=== PATIENT | male | born 1930 | race Caucasian/White ===

== ENCOUNTER 2017-03-17 12:19 | Emergency (ER) | payer MEDICARE, OTHER ==
[~2017-03-17] VITALS: Ht 177.8 cm; Wt 78.9 kg
[~2017-03-17 12:19] MED LIST: AMLO5 PO; ASPI81EC PO; ATOR20 PO; CLOP75 PO; EPIN.3I IM; EPIPEN0.3 MG/0.3 IM; FAMO40 PO; LANS15EC PO; LISHYD2025 PO; Lisinopril2.5 MG PO; METO25ER PO; MULVITMIND PO; Norco 5-325 Ta1 EACH PO; POTA10T PO; POTA8 PO; PRED20 PO; Pepcid20 MG PO; Prednisone20 MG PO; Prinivil10 MG PO; ST. JOSEPH ASPI81 MG PO; TAMS.4ER PO; [UNRECOGNIZED DRUG - OTHER] PO
[2017-03-17] MEDS ORDERED: HYDURE500 PO (12:53)
[2017-03-17] MEDS ORDERED: METO50ER PO (12:53)
[2017-03-17] MEDS ORDERED: ZESTORETIC 20-121 EA (12:53)
== END 2017-03-17 14:51 | disposition home or self-care (01) ==
LOC: ER 12:19
DX: M79.662 Pain in left lower leg (principal); Z91.030 Bee allergy status; Z79.899 Other long term (current) drug therapy; Z79.82 Long term (current) use of aspirin; K21.9 Gastro-esophageal reflux disease without esophagitis; I10 Essential (primary) hypertension; I25.10 Atherosclerotic heart disease of native coronary artery without angina pectoris; E78.5 Hyperlipidemia, unspecified; Z87.891 Personal history of nicotine dependence
CPT/HCPCS: 93971; 99284

== ENCOUNTER 2017-04-29 14:09 | Day surgery (SDC) | payer MEDICARE, OTHER ==
[~2017-04-29 14:09] MED LIST changes: +HYDURE500 PO; +METO50ER PO; +ZESTORETIC 20-121 EA
== END 2017-04-29 23:04 | disposition home or self-care (01) ==
LOC: RAD 14:09
PROC: BQ28YZZ Computerized Tomography (CT Scan) of Left Knee using Other Contrast (ICD-10-PCS; principal; 2017-04-29)
DX: M17.12 Unilateral primary osteoarthritis, left knee (principal); M71.22 Synovial cyst of popliteal space [Baker], left knee
CPT/HCPCS: 20610; 73701; 77002; Q9967

== ENCOUNTER 2017-10-20 16:43 | Emergency (ER) | payer MEDICARE, OTHER ==
[~2017-10-20] VITALS: Ht 177.8 cm; Wt 81.7 kg
[2017-10-20] MEDS ORDERED: Prednisone50 MG PO (17:13)
[2017-10-20] MEDS ORDERED: EPIPEN 2-P0.3 MG/0.3 IM (17:13)
== END 2017-10-20 18:00 | disposition home or self-care (01) ==
LOC: ER 16:43
DX: T63.461A Toxic effect of venom of wasps, accidental (unintentional), initial encounter (principal); Z91.038 Other insect allergy status; Z79.899 Other long term (current) drug therapy; Z79.82 Long term (current) use of aspirin; Z79.52 Long term (current) use of systemic steroids; Z87.891 Personal history of nicotine dependence
CPT/HCPCS: 99282; J1100; Q0163

== ENCOUNTER 2017-11-11 10:26 | Day surgery (SDC) | payer MEDICARE, OTHER ==
[~2017-11-11] VITALS: Ht 180.3 cm; Wt 74.9 kg
[~2017-11-11 10:26] MED LIST changes: +EPIPEN 2-P0.3 MG/0.3 IM; +Prednisone50 MG PO
== END 2017-11-11 12:56 | disposition home or self-care (01) ==
LOC: ORSCSDS 10:26
PROVIDERS: Ophthalmology
PROC: 08RK3JZ Replacement of Left Lens with Synthetic Substitute, Percutaneous Approach (ICD-10-PCS; principal; 2017-11-11 12:00)
DX: H25.12 Age-related nuclear cataract, left eye (principal); H21.81 Floppy iris syndrome; I10 Essential (primary) hypertension; E78.2 Mixed hyperlipidemia; J44.9 Chronic obstructive pulmonary disease, unspecified; Z86.73 Personal history of transient ischemic attack (TIA), and cerebral infarction without residual deficits; I25.2 Old myocardial infarction; Z95.0 Presence of cardiac pacemaker; Z79.899 Other long term (current) drug therapy; Z79.82 Long term (current) use of aspirin
CPT/HCPCS: J2250; J3010; J7120; V2632

== ENCOUNTER 2017-12-02 13:20 | Day surgery (SDC) | payer MEDICARE, OTHER ==
[~2017-12-02] VITALS: Ht 180.3 cm; Wt 76.0 kg
== END 2017-12-02 16:43 | disposition home or self-care (01) ==
LOC: ORSCSDS 13:20
PROVIDERS: Ophthalmology
PROC: 08RJ3JZ Replacement of Right Lens with Synthetic Substitute, Percutaneous Approach (ICD-10-PCS; principal; 2017-12-02 15:00)
DX: H25.11 Age-related nuclear cataract, right eye (principal); H18.51 Endothelial corneal dystrophy; I10 Essential (primary) hypertension; I25.10 Atherosclerotic heart disease of native coronary artery without angina pectoris; I25.2 Old myocardial infarction; Z86.73 Personal history of transient ischemic attack (TIA), and cerebral infarction without residual deficits; Z95.0 Presence of cardiac pacemaker; Z79.899 Other long term (current) drug therapy
CPT/HCPCS: J3010; J7120; V2632

== ENCOUNTER 2018-06-17 19:32 | Inpatient (IN) | payer MEDICARE, OTHER ==
[~2018-06-17] VITALS: Ht 175.3 cm; Wt 78.4 kg
[~2018-06-17 19:32] MED LIST changes: -ZESTORETIC 20-121 EA; +ZESTORETIC 20-121 EA PO
[2018-06-17 20:13] LABS: BASOPHILS ABSOLUTE AUTO 0.32 K/mm3 (0.00-0.23); BASOPHILS PERCENT AUTO 2 % (0-2); EOSINOPHILS ABSOLUTE AUTO 0.75 K/mm3 (0.00-0.68); EOSINOPHILS PERCENT AUTO 5 % (0-6); Hematocrit 44.1 % (37.0-53.0); Hemoglobin 14.2 g/dL (13.5-17.5); IMMATURE GRAN ABSOLUTE AUTO 0.89 K/mm3 (0.00-0.10); IMMATURE GRAN PERCENT AUTO 5 % (0-1); LYMPHOCYTES ABSOLUTE AUTO 2.61 K/mm3 (0.84-5.20); LYMPHOCYTES PERCENT AUTO 16 % (21-46); MONOCYTES ABSOLUTE AUTO 1.37 K/mm3 (0.16-1.47); MONOCYTES PERCENT AUTO 8 % (4-13); Mean Corpuscular HGB 31.8 pg (26.0-34.0); Mean Corpuscular HGB Conc 32.2 g/dL (31.5-36.5); Mean Corpuscular Volume 99 fL (80-100); Mean Platelet Volume 9.8 fL (9.1-12.4); NEUTROPHILS ABSOLUTE AUTO 10.54 K/mm3 (1.96-9.15); NEUTROPHILS PERCENT AUTO 64 % (41-73); Platelet Count 507 K/mm3 (150-400); RDW Coefficient Variation 15.6 % (11.7-14.2); RDW Standard Deviation 56.4 fL (35.1-46.3); Red Blood Cell Count 4.46 M/mm3 (4.30-5.90); White Blood Cell Count 16.48 K/mm3 (4.00-11.30)
[2018-06-17 20:25] LABS: Alanine Aminotransfer (ALT/SGP 25 U/L (12-78); Albumin, Blood 3.5 g/dL (3.4-5.0); Albumin/Globulin Ratio 1.2 (0.8-1.8); Alk Phos 73 U/L (50-136); Anion Gap 6 mmol/L (6-16); Aspartate Aminotrans (AST/SGOT 21 U/L (12-37); Bilirubin, Total 0.4 mg/dL (0.1-1.0); Blood Urea Nitrogen 27 mg/dL (8-24); Bun/Creatinine Ratio 22.9 (12.0-20.0); CO2, Blood 25 mmol/L (21-32); Calcium, Blood 8.3 mg/dL (8.5-10.1); Chloride, Blood 112 mmol/L (98-108); Creatinine, Blood 1.18 mg/dL (0.60-1.20); Ethanol (Alcohol), Blood, Med <3 mg/dL; Glomerular Filtration Rate >60 (60-); Glucose, Blood 64 mg/dL (70-99); Potassium, Blood 3.9 mmol/L (3.5-5.5); Sodium, Blood 143 mmol/L (136-145); Total Protein, Blood 6.5 g/dL (6.4-8.2); Troponin I <0.015 ng/mL (0.000-0.040)
[2018-06-17 20:47] LABS: BASOPHILS ABSOLUTE MAN 0.65 K/mm3 (0.00-0.23); BASOPHILS PERCENT MAN 4 % (0-2); EOSINOPHILS ABSOLUTE MAN 0.49 K/mm3 (0.00-0.68); EOSINOPHILS PERCENT MAN 3 % (0-6); LYMPHOCYTES ABSOLUTE MAN 2.14 K/mm3 (0.84-5.20); LYMPHOCYTES PERCENT MAN 13 % (21-46); METAMYELOCYTE ABSOLUTE MAN 0.49 K/mm3 (0.00-0.00); METAMYELOCYTE PERCENT MAN 3 % (0-0); MONOCYTES ABSOLUTE MAN 0.98 K/mm3 (0.16-1.47); MONOCYTES PERCENT MAN 6 % (4-13); MYELOCYTE ABSOLUTE MAN 0.16 K/mm3 (0.00-0.00); MYELOCYTE PERCENT MAN 1 % (0-0); NEUTROPHILS ABSOLUTE MAN 11.53 K/mm3 (1.96-9.15); SEG NEUTROPHILS PERCENT MAN 70 % (41-73); TOTAL CELLS COUNTED 100
[2018-06-17 21:10] LABS: Source, Urine Clean Catch
[2018-06-17 21:13] LABS: Bilirubin, Urine Neg (Neg); Blood, Urine Neg (Neg); Glucose Qualitative, Urine Neg (Neg); Ketones, Urine Neg (Neg); Leukocyte Esterase, Urine 3+ (Neg); Nitrite, Urine Neg (Neg); Protein, Urine Neg (Neg); Urobilinogen, Urine NORM (Normal)
[2018-06-17 21:22] LABS: Appearance, Urine Clear (Clear); Color, Urine Yellow (P-Yellow)
[2018-06-17 21:24] LABS: Bacteria Mod /hpf; Squamous Epithelial Cells Few /hpf (Few)
[2018-06-17 21:25] LABS: Hyaline Casts 0-2 /lpf (0-2); Mucus Light (0-Heavy)
[2018-06-17 21:27] LABS: Influenza A Negative (NEGATIVE); Influenza B Negative (NEGATIVE)
[2018-06-17 21:27] LABS: U Amphetamine Screen Not Detected; U Barbituate Screen Not Detected; U Benzodiazapine Screen Not Detected; U Buprenorphine Screen Not Detected; U Cannabinoids Screen Not Detected; U Cocaine Screen Not Detected; U Methadone Screen Not Detected; U Methamphetamine Screen Not Detected; U Opiates Screen Not Detected; U Oxycodone Screen Not Detected; U Phencyclidine Screen Not Detected
[2018-06-17 21:28] LABS: U Propoxyphene Screen Not Detected
--- NOTE | 2018-06-17 23:49 | NUR ---
TRANSFER REPORT FROM ESTEFAN[facility] CASTANON IN ER on PT being admitted with weakness, uti and hypoglycemia. 88 year old Male comes from home and with large family. He is being treated with antibiotics for uti and urine C & S pending. Blood glucose had been 59 on ER admission and then up to 119. d50 ordered in ER not given. Await admission
--- NOTE | 2018-06-18 05:08 | NUR ---
88 year old Male with hx of cva in 2017 with slight rt ue rt le weakess and hypoglycemia with blood glucose 59 for EMS and treated with oral glucose and also in ER 59 with orals given. BG Q 4 HRS 123, 124 on IV fluid D5 0.45. PT co visual changes diaphoresis and extreme shakiness prior to calling EMS. PT lives in [place] area on [facility] and has had extreme stress due to Mother in law passing in Mar 2018 and of 67 years having treatment for lung and breast cancer. Pt has UTI voids adequate amts. C & S pending after positive UA. PT is spent 4 years in [employer]. VSS. neuro checks Q 4 hours with vision improved wnl for PT and he was able to ambulate without ambulation aide to bathroom. He does have some persistant rt ue and rt le weakness slight. Fell at home recently. 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 SR rate 64, 1st degree BBB. ASA 325 mg tab given. Has very supportive family with assist available. Has echo and carotid duplex ordered. Pleasant and cooperative. tingling to both.
[2018-06-18 05:24] LABS: BASOPHILS PERCENT AUTO 2 % (0-2); EOSINOPHILS ABSOLUTE AUTO 0.63 K/mm3 (0.00-0.68); EOSINOPHILS PERCENT AUTO 4 % (0-6); Hematocrit 42.1 % (37.0-53.0); Hemoglobin 13.7 g/dL (13.5-17.5); IMMATURE GRAN ABSOLUTE AUTO 0.63 K/mm3 (0.00-0.10); IMMATURE GRAN PERCENT AUTO 4 % (0-1); LYMPHOCYTES ABSOLUTE AUTO 1.82 K/mm3 (0.84-5.20); LYMPHOCYTES PERCENT AUTO 12 % (21-46); MONOCYTES ABSOLUTE AUTO 1.09 K/mm3 (0.16-1.47); MONOCYTES PERCENT AUTO 7 % (4-13); Mean Corpuscular HGB 31.9 pg (26.0-34.0); Mean Corpuscular HGB Conc 32.5 g/dL (31.5-36.5); Mean Corpuscular Volume 98 fL (80-100); Mean Platelet Volume 9.9 fL (9.1-12.4); NEUTROPHILS PERCENT AUTO 71 % (41-73); Platelet Count 428 K/mm3 (150-400); RDW Coefficient Variation 15.5 % (11.7-14.2); RDW Standard Deviation 55.2 fL (35.1-46.3); White Blood Cell Count 15.47 K/mm3 (4.00-11.30)
[2018-06-18 05:50] LABS: Anion Gap 5 mmol/L (6-16); Blood Urea Nitrogen 25 mg/dL (8-24); Bun/Creatinine Ratio 22.1 (12.0-20.0); CHOL/HDL RATIO 2.7; CO2, Blood 26 mmol/L (21-32); Chloride, Blood 111 mmol/L (98-108); Cholesterol 91 mg/dL (50-200); Creatinine, Blood 1.13 mg/dL (0.60-1.20); Glomerular Filtration Rate >60 (60-); Glucose, Blood 125 mg/dL (70-99); HDL Cholesterol 34 mg/dL (>39); LDL/HDL RATIO 1.1; Low Density Lipoprotein Chol 38 mg/dL (0-110); Potassium, Blood 3.5 mmol/L (3.5-5.5); Sodium, Blood 142 mmol/L (136-145); Triglycerides 93 mg/dL (30-160); Very Low Density Lipoprot Chol 18 mg/dL (6-32)
[2018-06-18] MEDS ORDERED: PRESERVISION L1 EACH PO (11:10)
--- NOTE | 2018-06-18 12:24 | NUR ---
echocardiogram complete
--- NOTE | 2018-06-18 17:52 | NUR ---
ALERT AND ORIENTED. COOPERATIVE. AWARE OF INFREQUENT PAIN TO LEFT SHLDER LAST NIGHT. UNABLE TO DO MRI DUE TO PACEMAKER. P.T. DID EVAL. PATIENT GETS SOB W/EXERTION. RT SIDED WEAKNESS. PLEASANT. TELE ON. HAS BEEN SR W/BBB AND 1ST DEGREE ALL DAY PER TECH. WILL CONTINUE TO MONITOR.
--- NOTE | 2018-06-18 23:33 | NUR ---
88 year old Male with hx of prior CVA in 2017 with minimal residual continues with good use of rt ue and rt le but has some mild weakness and decreased sensation with intermittant tingle. Alert and oriented PT has some mild memory deficits about his history. He see oncology but missed several appts while his Rboewk-fi-ysf was ill. He is the primary caregiver for his of 67 years who has CVA and lung and breast cancer. PT lives in remote area [facility] and Grandson assists with some cares. PT verbalizes DR wants him to have someone care for his in addition to self. PT says oldest DTR is currently here and staying at his home. PT says he has been on RX to treat blood disorder since 2017. Voids large amts of clear yellow urine . Appetite good. Bowels moving and denies pain. blood glucose at 100 off IV fluids. Recieved rocephin for uti denies symptoms. low grade fever. Up amb with SBA and FWW.
[2018-06-19 06:01] LABS: Anion Gap 6 mmol/L (6-16); Blood Urea Nitrogen 22 mg/dL (8-24); Bun/Creatinine Ratio 23.3 (12.0-20.0); CO2, Blood 25 mmol/L (21-32); Calcium, Blood 8.7 mg/dL (8.5-10.1); Chloride, Blood 111 mmol/L (98-108); Creatinine, Blood 0.95 mg/dL (0.60-1.20); Glomerular Filtration Rate >60 (60-); Glucose, Blood 94 mg/dL (70-99); Potassium, Blood 3.9 mmol/L (3.5-5.5); Sodium, Blood 142 mmol/L (136-145)
--- NOTE | 2018-06-19 06:38 | NUR ---
88 year old Male with hx of prior cva in 2017 and hx of blood disorder dx with same visit continues on rocephin for UTI. PT up with 1 SBA with FWW. With fairly steady gait. He is alert oriented with mild forgetfulness. He lives in [facility] with with multiple medical problems and he has been her primary support. He has a Grandson who is currently living with the couple and providing some support. PT med rec updated as per recent [facility] visit for followup on pacemaker. Recent URI with outpt antibiotics per medication claim history. Has supportive family in area. EKG unchanged from prior and carotid duplex shows no significant occlusion.
--- NOTE | 2018-06-19 18:37 | NUR ---
ALERT AND ORIENTED. RT SIDED WEAKNESS WITH UPPER EXT WEAKER THAN LOWER. ABLE TO WALK TO BATHROOM W/MINIMAL ASSIST. HAD SHOWER WITHOUT STAFF ASSIST. IN CHAIR FOR DINNER. GOOD APPETITE. UNLABORED RESPIRATIONS. TELE D'C. IV PATENT. WCTM.
--- NOTE | 2018-06-19 19:30 | NUR ---
urine culture positive for group B strep. Called pharmacy to see if antibiotic rocephin is effective to treat. Rocephin is good coverage. Pt continues to deny burning or pain with urination. voids at least 250 ml per void without difficulty.
--- NOTE | 2018-06-20 02:50 | NUR ---
PT continues with slight rt ue and rt le weakness and intermittant tingling. He is alert and oriented with mild baseline memory deficits hx of cva 2017 with minimal residual effect. Up with 1 sba with fww. continue to have blood glucose greater than 100 on Q 4 hour blood glucose checks. Pt says he consumes moderate amt of sugar at home on daily basis. Discussed inital energy then drop after sugar gone with sugar use. Pt says he has some support with adult DTR staying currently at his home. Retired from 30 years at [employer] in [place] then 11 years in [employer] position in [place]. Retired for 67 years. 4 years younger than PT. Discussed need for decreased stress and caring for self versus being primary caregiver for ill Spouse. PT recently cared for his dying Motherriki who passed end of Mar 2018 at age 101. Pt says he has help at home. Hard of hearing wears bilat hearing aides. communicates well speech clear. Tolerating diet and activity. VSS.
[2018-06-20 05:30] LABS: BASOPHILS ABSOLUTE AUTO 0.33 K/mm3 (0.00-0.23); BASOPHILS PERCENT AUTO 2 % (0-2); EOSINOPHILS ABSOLUTE AUTO 0.66 K/mm3 (0.00-0.68); EOSINOPHILS PERCENT AUTO 5 % (0-6); Hematocrit 43.9 % (37.0-53.0); Hemoglobin 14.2 g/dL (13.5-17.5); IMMATURE GRAN PERCENT AUTO 4 % (0-1); LYMPHOCYTES ABSOLUTE AUTO 1.68 K/mm3 (0.84-5.20); LYMPHOCYTES PERCENT AUTO 12 % (21-46); MONOCYTES ABSOLUTE AUTO 1.49 K/mm3 (0.16-1.47); MONOCYTES PERCENT AUTO 10 % (4-13); Mean Corpuscular HGB 31.9 pg (26.0-34.0); Mean Corpuscular HGB Conc 32.3 g/dL (31.5-36.5); Mean Corpuscular Volume 99 fL (80-100); Mean Platelet Volume 9.8 fL (9.1-12.4); NEUTROPHILS ABSOLUTE AUTO 9.69 K/mm3 (1.96-9.15); NEUTROPHILS PERCENT AUTO 67 % (41-73); Platelet Count 404 K/mm3 (150-400); RDW Coefficient Variation 15.4 % (11.7-14.2); Red Blood Cell Count 4.45 M/mm3 (4.30-5.90); White Blood Cell Count 14.45 K/mm3 (4.00-11.30)
[2018-06-20 05:56] LABS: Alanine Aminotransfer (ALT/SGP 22 U/L (12-78); Albumin, Blood 3.3 g/dL (3.4-5.0); Albumin/Globulin Ratio 1.2 (0.8-1.8); Alk Phos 76 U/L (50-136); Anion Gap 5 mmol/L (6-16); Aspartate Aminotrans (AST/SGOT 18 U/L (12-37); Bilirubin, Total 0.7 mg/dL (0.1-1.0); Blood Urea Nitrogen 21 mg/dL (8-24); CHOL/HDL RATIO 2.8; CO2, Blood 26 mmol/L (21-32); Calcium, Blood 8.6 mg/dL (8.5-10.1); Chloride, Blood 109 mmol/L (98-108); Cholesterol 91 mg/dL (50-200); Globulin, Blood 2.8 g/dL (2.2-4.0); Glucose, Blood 100 mg/dL (70-99); HDL Cholesterol 33 mg/dL (>39); LDL/HDL RATIO 1.2; Low Density Lipoprotein Chol 39 mg/dL (0-110); Magnesium, Blood 2.3 mg/dL (1.6-2.4); Potassium, Blood 3.9 mmol/L (3.5-5.5); Sodium, Blood 140 mmol/L (136-145); Total Protein, Blood 6.1 g/dL (6.4-8.2); Triglycerides 94 mg/dL (30-160); Very Low Density Lipoprot Chol 18 mg/dL (6-32)
[2018-06-20 06:06] LABS: Bun/Creatinine Ratio 20.4 (12.0-20.0); Creatinine, Blood 1.03 mg/dL (0.60-1.20); Glomerular Filtration Rate >60 (60-)
[2018-06-20] MEDS ORDERED: ATOR40TA PO (13:09)
[2018-06-20] MEDS ORDERED: LEVFLO500 PO (13:14)
[2018-06-20] MEDS ORDERED: ACETAMINOPHEN650 MG PO (13:14)
--- NOTE | 2018-06-20 14:15 | NUR ---
DISCHARGE INSTRUCTIONS COMPLETED AND DISCUSSED WITH PT EXPRESSING UNDERSTANDING WITH LISTENING IN WELL. SCRIPTS FAXED TO [facility]. YOSEF ESTRADAB VIA W/X.
== END 2018-06-20 14:08 | disposition home or self-care (01) | DRG 64 ==
LOC: ER 19:32 → MEDS 22:43 → ENPENDDIS 06-20 11:53 → MEDS 06-20 14:08
PROVIDERS: Emergency Medicine; Internal Medicine; ADMIT Family Medicine
DX: I61.9 Nontraumatic intracerebral hemorrhage, unspecified (principal); G92 Toxic encephalopathy; N39.0 Urinary tract infection, site not specified; G81.91 Hemiplegia, unspecified affecting right dominant side; I10 Essential (primary) hypertension; R53.1 Weakness; E16.2 Hypoglycemia, unspecified; D72.829 Elevated white blood cell count, unspecified; Z95.0 Presence of cardiac pacemaker; Z87.891 Personal history of nicotine dependence; R47.81 Slurred speech; K21.9 Gastro-esophageal reflux disease without esophagitis; N40.0 Benign prostatic hyperplasia without lower urinary tract symptoms; E78.5 Hyperlipidemia, unspecified; I25.10 Atherosclerotic heart disease of native coronary artery without angina pectoris; Z79.01 Long term (current) use of anticoagulants; Z79.82 Long term (current) use of aspirin
CPT/HCPCS: 36415; 70450; 71046; 80048; 80053; 80061; 81001; 82010; 82533; 82947; 83036; 83605; 83735; 84484; 84681; 85025; 87040; 87086; 87147; 87804; 93005; 93010; 93306; 93880; 96365-59; 97116; 97161; 97165; 97530; 99285-25; G0480; J0696; J1650; J7042